=== PATIENT | female | born 1995 | race Caucasian/White ===

== ENCOUNTER 2017-02-15 05:23 | Day surgery (SDC) | payer BC ==
[~2017-02-15] VITALS: Ht 172.7 cm; Wt 56.7 kg
[2017-02-15] VITALS (11 sets, daily range): BP systolic 96–129; BP diastolic 46–74
[2017-02-15] MEDS ORDERED: TESTOSTERO100 MG/1 M IM (06:17)
[2017-02-15] MEDS ORDERED: ceFAZolin sod 1 GM in NS 55 ML IVPB ONE (07:00)
[2017-02-15] MEDS ORDERED: Muri-Lube ONE ×3 (07:01→11:01)
[2017-02-15] MEDS ORDERED: Bacitracin Oint 15gm Tube TOPIC ONE (07:01)
[2017-02-15] MEDS ORDERED: Bupivacaine 0.25% Inj 30ml INJ ONE (07:02)
[2017-02-15] MEDS ORDERED: Lidocaine 1% 10mg/ml/EPI 0.01mg/ml 50ml INJ ONE (07:02)
[2017-02-15] MEDS ORDERED: TransDerm Scop 1mg/72HR Patch TDERMAL ONE (07:12)
[2017-02-15] MEDS ORDERED: Neostigmine 1mg/ml 10ml Inj ONE (07:30)
[2017-02-15] MEDS ORDERED: Midazolam 2mg/2ml Inj ONE (07:30)
[2017-02-15] MEDS ORDERED: Propofol 200mg/20ml IV ONE (07:30)
[2017-02-15] MEDS ORDERED: Glycopyrrolate 0.2mg/ml 1ml Vial ONE (07:30)
[2017-02-15] MEDS ORDERED: Dexamethasone 4mg/ml vial ONE (07:30)
[2017-02-15] MEDS ORDERED: Succinylcholine 20mg/ml 10ml vial ONE (07:30)
[2017-02-15] MEDS ORDERED: Zemuron 50mg/5ml Inj IV ONE (07:30)
[2017-02-15] MEDS ORDERED: fentaNYL 100 mcg/2 mL IV ONE (07:30)
[2017-02-15] MEDS ORDERED: Ketorolac 30mg Inj ONE (07:30)
[2017-02-15] MEDS ORDERED: Dyna-Hex 2% Top Sol 2oz TOPIC ONE (07:30)
[2017-02-15] MEDS ORDERED: Morphine Sulfate 10mg/ml Inj ONE (07:30)
[2017-02-15] MEDS ORDERED: NS Irrig 1000ml ONE (07:30)
[2017-02-15] MEDS ORDERED: LR 1000ml ONE (07:30)
[2017-02-15] MEDS ORDERED: Sterile Water Irrig 1000ml IRRIG ONE (07:30)
--- NOTE | 2017-02-15 07:30 | Pre-Procedure Note/Attestation ---
Pre-Procedure Note/Attestation Complete Prior to Procedure Planned Procedure: bilateral Procedure Narrative: mastectomy Indications for Procedure Pre-Operative Diagnosis: gender dysphoria Attestation I attest that I discussed the nature of the procedure; its benefits; risks and complications; and alternatives (and the risks and benefits of such alternatives ), prior to the procedure, with the patient (or the patient's legal dermatology sales representative). I attest that, if there was a reasonable possibility of needing a blood transfusion, the patient (or the patient's legal dermatology sales representative) was given the [facility] standardized written summary, pursuant to the Jer Amandeep Blood Safety Act ([place] Health and Safety Code # 1645, as amended). I attest that I re-evaluated the patient just prior to the surgery and that there has been no change in the patient's H&P, except as documented below: EARL SHAIKH M.D. Feb 15, 2017 07:30
[2017-02-15] MEDS ORDERED: LR 1000ml 1,000 ML IVLG SCH (08:38)
--- NOTE | 2017-02-15 08:38 | Anethesia Preoperative Eval ---
Anesthesia Pre-op PMH/ROS General Date of Evaluation: Feb 15, 2017 Time of Evaluation: 07:18 Anesthesiologist: Marylin ASA Score: ASA 2 Mallampati Score Class I : Soft palate, uvula, fauces, pillars visible Class II: Soft palate, uvula, fauces visible Class III: Soft palate, base of uvula visible Class IV: Only hard plate visible Mallampati Classification: Class I Surgeon: Jairo Diagnosis: Gender dysphoria Surgical Procedure: Bilateral mastectomy Anesthesia History: none Family History: no anesthesia problems Allergies: Coded Allergies: No Known Allergies (Unverified , 02/14/17) Medications: see eMAR Past Medical History Cardiovascular: Denies: HTN, CAD, ME, valve dz, arrhythmia, other Pulmonary: Denies: asthma, COPD, GENEVIEVE, other Gastrointestinal/Genitourinary: Denies: GERD, CRI, ESRD, other Neurologic/Psychiatric: Reports: depression/anxiety, Denies: dementia, CVA, TIA, other Endocrine: Denies: DM, hypothyroidism, steroids, other HEENT: Denies: cataract (L), cataract (R), glaucoma, LUMMI (L), LUMMI (R), other Hematology/Immune: Denies: anemia, DVT, bleeding disorder, other Musculoskeletal/Integumentary: Denies: OA, RA, DJD, DDD, edema, other PMH Narrative: as above PSxH Narrative: Dental Sx Anesthesia Pre-op Phys. Exam Physician Exam Last Vital Signs Date Time Temp Pulse Resp B/P (MAP) Pulse Ox O2 Delivery O2 Flow Rate FiO2 02/15/17 06:08 97.1 77 18 129/74 100 Room Air Constitutional: NAD Neurologic: CN 2-12 intact Cardiovascular: RRR, no M/R/G Respiratory: CTA Gastrointestinal: S/NT/ND Airway Exam Mallampati Score: Class I MO: full Neck: flexible ROM: full Teeth: intact Dentures: no upper, no lower Anesthesia Pre-op A/P Labs see chart Urine Test Test 02/15/17 05:50 Urine HCG, Qualitative Negative Risk Assessment & Plan Assessment: ASA 2 Plan: GA with ETT PONV prevention order for scopolamine patch in Status Change Before Surgery: No Pre-Antibiotics Drug: Ancef 1 gr. Given Within 1 Hr of Incision: Yes Time Given: 07:56 BETTY ERVIN M.D. Feb 15, 2017 08:38
[2017-02-15] MEDS ORDERED: Hydromorphone 0.5mg/0.5ml inj IVP PRN (08:45)
[2017-02-15] MEDS ORDERED: Meperidine 50mg/ml Inj(FOR RIGORS ONLY) IV PRN (08:45)
[2017-02-15] MEDS ORDERED: Ketorolac 30mg Inj IV PRN (08:45)
[2017-02-15] MEDS ORDERED: Metoclopramide 10mg/2ml Inj IVP PRN (08:45)
[2017-02-15] MEDS ORDERED: DiphenhydrAMINE 50mg/ml Inj IVP PRN (08:45)
[2017-02-15] MEDS ORDERED: Midazolam 2mg/2ml Inj IVP PRN (08:45)
--- NOTE | 2017-02-15 11:18 | Operative Note - PDOC ---
Operative Note Operative Note Date of Operation/Procedure: Feb 15, 2017 Pre-op Diagnosis: gender dysphoria Procedure: bilateral subcutaneous mastectomy, bilateral nipple areola reconstruction with full-thickness free nipple grafting Post-op Diagnosis: same Post-op Diagnosis: same as pre-op Surgeon: Jairo Anesthesiologist: Marylin Anesthesia: general Specimen: yes Complications: none Condition: stable Estimated Blood Loss: volume - 50 cc Drains: EMILIE - x2 Implant(s) used?: No Indications for Procedure gender dysphoria EARL SHAIKH M.D. Feb 15, 2017 11:18
--- NOTE | 2017-02-15 11:20 | Discharge Instructions ---
Discharge Instructions Discharge Instructions Follow up with: Dr. Shaikh Feb 21 4:30 pm Diet: regular Resume Normal Activity?: Yes Activity: ambulate, other - no lifting anything heavier than 10 lbs For Surgical Patients Dressing Care: keep dry and clean May shower: No For Congestive Heart Failure Reminder Report to your physician any weight gain of 5 pounds or more in one week. EARL SHAIKH M.D. Feb 15, 2017 11:20
--- NOTE | 2017-02-15 11:38 | Immediate Post-Op Evaluation ---
Immediate Post-Op Evalulation Immediate Post-Op Evalulation Procedure: Bilateral mastectomy with nipple reconstruction Date of Evaluation: Feb 15, 2017 Time of Evaluation: 11:37 IV Fluids: 1500 Blood Products: none Estimated Blood Loss: 150 Urinary Output: 500 Blood Pressure Systolic: 109 Blood Pressure Diastolic: 56 Pulse Rate: 70 Respiratory Rate: 22 O2 Sat by Pulse Oximetry: 99 Temperature (Fahrenheit): 98.6 Pain Score (1-10): 2 Nausea: No Vomiting: No Complications none Patient Status: reacts, patent, extubated Hydration Status: adequate BETTY ERVIN M.D. Feb 15, 2017 11:38
--- NOTE | 2017-02-15 13:05 | 48 Hour Post Anesthesia Eval ---
Post Anesthesia Evaluation Procedure: Bilateral mastectomy with nipple reconstruction Date of Evaluation: Feb 15, 2017 Time of Evaluation: 13:04 Blood Pressure Systolic: 108 0: 56 Pulse Rate: 72 Respiratory Rate: 22 Temperature (Fahrenheit): 97.8 O2 Sat by Pulse Oximetry: 98 Airway: patent Nausea: No Vomiting: No Pain Intensity: 2 Hydration Status: adequate Cardiopulmonary Status: stable Mental Status/LOC: patient returned to baseline Follow-up Care/Observations: n/a Post-Anesthesia Complications: none Follow-up care needed: ready to discharge BETTY ERVIN M.D. Feb 15, 2017 13:05
[2017-02-15] MEDS ORDERED: Tylenol #3 tab (300mg/30mg) ORAL PRN (15:01)
[2017-02-15] MEDS ORDERED: D5 1/2NS 1,000 ML IV SCH (15:01)
[2017-02-15] MEDS ORDERED: Norco 5mg/325mg tab ORAL PRN (15:01)
[2017-02-15] MEDS ORDERED: HYDROmorphone 1mg/ml Carpuject SUBQ PRN (15:01)
--- NOTE | 2017-02-15 17:15 | Operative Note - Dictated ---
DATE OF OPERATION: 02/15/2017 PREOPERATIVE DIAGNOSIS: Gender dysphoria. POSTOPERATIVE DIAGNOSIS: Gender dysphoria. PROCEDURE: 1. Bilateral subcutaneous mastectomy. 2. Bilateral nipple-areolar reconstruction with full-thickness free nipple-areolar grafts (each graft 6.25 cm2). 3. Bilateral reconstruction of inferior mastectomy defect. SURGEON: Pato Gill M.D. ANESTHESIA: General. ESTIMATED BLOOD LOSS: 50 mL. SPECIMENS: 1. Right breast. 2. Left breast. DRAINS: A 15-Mexican Yohan x2. COMPLICATIONS: None. CONDITION TO RECOVERY ROOM: Stable. INDICATION FOR PROCEDURE: This is a very pleasant 21-year-old transgender male, who has been undergoing the process of transition. He has the supporting documentation from his mental health therapist and he also meets all WPATH criteria for top surgery. He wishes to proceed with this portion of his transition. I have discussed the risks, benefits, and alternatives of the procedure with him including but not limited to bleeding, infection, scarring, nerve injury, asymmetry, contour deformity, hematoma, seroma, loss of nipple sensation, loss of nipple graft, and need for additional surgery including revision. I discussed the orientation of the incisions and the unpredictable nature of scarring. No guarantees were made regarding the outcome. All of his questions have been answered to the best of my ability. He verbalized understanding with everything that we discussed and wishes to proceed. DESCRIPTION OF PROCEDURE: The patient was identified in the preoperative holding area and marked in the standing position. He was then brought to the operating room where he was placed in the supine position on the operating room table with his arms extended on arm boards. All bony prominences were adequately padded. Sequential compression devices were placed and intravenous antibiotics were administered. After induction of anesthesia, the patient's chest was prepped and draped in sterile fashion. Starting on the left breast first, the nipple-areolar complex was placed on manual stretch. A [place] tribes measuring 2.5 x 2.5 cm in diameter was drawn centered around the nipple. Next, a #15 blade scalpel was used to harvest a full thickness composite nipple-areolar graft. The graft was subsequently defatted and then wrapped in wet gauze and placed on the back table. I then made the inframammary fold incision using a #10 blade scalpel. Dissection proceeded down through the subcutaneous tissues until the level of the pectoralis major fascia was reached. I then proceeded to make the superior breast incision with a #10 blade scalpel. Dissection proceeded down through the level of Dionne fascia. Skin hooks were then used to retract the skin and a plane of dissection was then created between the subcutaneous tissue and the breast parenchyma heading in a superior direction towards the clavicle taking care to ensure that the skin flap was of uniform thickness. After this was done, I then proceeded to elevate the breast tissue off of the pectoralis major fascia going from a medial to a lateral direction. The specimen was passed off the table. The wound was then irrigated with saline and hemostasis was achieved. A #15 Mexican Yohan drain was placed within the wound and brought out through a separate stab incision and secured using 2-0 silk suture. I then proceeded to make a back-cut extending the incision in an oblique direction heading towards the direction of the axilla for approximately 8 cm. Wide undermining of the tissue was performed inferiorly and laterally, taking care to identify and preserve the intercostal perforators to the skin so as to preserve vascularity to the tissues. The inferior skin flap was then advanced in a superior direction and then secured to the underlying fascia using #0 Vicryl suture so as to reconstruct the inframammary defect such that the orientation of the incision followed the inferior and lateral borders of the pectoralis major muscle and the transposed tissues provided a nice contour to the inferior chest. After this was done, skin indira were then used to temporarily reapproximate the skin. I shifted my attention to the contralateral side where the identical procedure was performed. Next, the patient was sat up on the operating room table and it appeared that he had reasonable symmetry between the two sides. The placement and orientation of the incisions also looked similar between the two sides. A marking pen was then used to draw the proposed location of the nipple-areolar complex on each side. This was confirmed with measurements. He was then placed back down in the supine position. Interrupted #0 Vicryl sutures were then used to reapproximate Dionne fascia on each side. The skin indira were removed. The dermal layers were then closed with interrupted 3-0 PDS suture followed by running 3-0 Monocryl suture for the skin. Next, each of the nipple-areolar complex markings were incised using a #15 blade scalpel. The intervening skin was then deepithelialized. Each of the full-thickness composite nipple-areolar grafts were then brought onto the operating field and inset onto each appropriate side using running 5-0 fast-absorbing suture. Next, several 2-0 silk suture ties were placed around the periphery of each nipple-areolar graft. A skin graft bolster was then fashioned and secured into place over each nipple-areolar graft and tied down using the silk sutures. Next, a total of 20 mL of local anesthetic consisting of equal parts of 1% lidocaine with epinephrine and 0.25% plain Marcaine were injected into the incisions. Sterile dressings were then applied. The patient tolerated the procedure well and was sent to the recovery room in stable condition. All instrument, sharp, and sponge counts were correct at the conclusion of the case. Pato Gill M.D. DR: Tomasa JOB#: [id number] CC: [id number]
== END 2017-02-15 13:30 | disposition home or self-care (01) ==
LOC: SUR 05:23
DX: F64.9 Gender identity disorder, unspecified (principal)
CPT/HCPCS: 15200; 19304; 81025; J0330; J0690; J1100; J1885; J2250; J2270; J2405; J2704; J2710; J3010; J3490; J7120; 94003; 94150